=== PATIENT | female | born 1965 | race Caucasian/White ===

== ENCOUNTER 2018-06-29 12:04 | Outpatient (CLI) | payer OTHER ==
--- NOTE | 2018-06-29 14:48 | Mammography Report ---
Reason: SCREENING FOR BREAST CANCER Procedure Date: 06/29/2018 Accession Number: [id number] / [id number] Procedure: [facility]N - Screening Mammo Dig Bilat CPT Code: FULL RESULT: EXAM: Screening Mammo Dig Bilat DATE: 06/29/2018 1:24 PM CLINICAL HISTORY: Screening mammogram. No reported risk factors. TECHNIQUE: Bilateral CC and MLO views were obtained. COMPARISON: 11/18/2011. FINDINGS: The breasts demonstrate heterogeneously dense fibroglandular parenchyma bilaterally. The right posterior and lateral breast is a hyperdense 0.6 cm well-demarcated nodule, 11 cm from the nipple. This finding is new and requires additional diagnostic spot imaging and 3-D imaging as well as ultrasound for clarification. No suspicious masses, clustered microcalcifications, or regions of architectural distortion are identified in the left breast. IMPRESSION: Incomplete examination RECOMMENDATION: Additional mammographic and ultrasound evaluation of the right breast finding as detailed above. BIRADS CATEGORY 0: Incomplete examination STANDARD QUALIFYING STATEMENTS: 1. This examination was reviewed with the aid of Computer-Aided Detection (CAD). 2. A negative or benign imaging report should not delay biopsy if clinically suspicious findings are present. Consider surgical consultation if warrented. More than 5% of cancers are not identified by imaging. 3. Dense breasts may obscure an underlying neoplasm.
== END 2018-06-29 12:05 | disposition home or self-care (01) ==
LOC: DI.N 12:04
PROVIDERS: ATTEND Nurse Practitioner
DX: Z12.31 Encounter for screening mammogram for malignant neoplasm of breast (principal)
CPT/HCPCS: 77067

== ENCOUNTER 2018-07-12 08:55 | Outpatient (CLI) | payer OTHER ==
--- NOTE | 2018-07-12 11:20 | Mammography Report ---
Reason: ABNORMAL MAMMOGRAM Procedure Date: 07/12/2018 Accession Number: [id number] / [id number] Procedure: [facility]IOLA - Diag Special Views Dig RT CPT Code: FULL RESULT: EXAM: Diag Special Views Dig RT DATE: 07/12/2018 9:29 AM CLINICAL HISTORY: Diagnostic examination. The patient is recalled from screening for findings of a new right breast nodule. TECHNIQUE: (R) - Right right breast CC, spot CC, MLO, spot MLO and ML images are obtained. Focused right breast ultrasound is performed. COMPARISON: 06/29/2018 through 11/18/2011. PARENCHYMAL PATTERN: FINDINGS: The right breast nodule measuring 0.6 cm in the central right breast 11 cm from the nipple is confirmed with no associated calcifications or architectural distortion. Focused right breast ultrasound demonstrates a 10:00 wider than tall complex hypodense 0.6 cm lesion with internal septations and increased through transmission as well as vascular flow within the septation by color Doppler. Findings of a similar-appearing wider than tall septated likely cystic structure approximately 1.1 cm from the sonographic finding which corresponds to the new mammographic abnormality are correlated to 3-D and 2-D mammographic images with these are retrospectively identified confirming target location. The second sonographic finding is retrospectively mammographically stable over time and therefore typically benign. There are no suspicious calcifications, or areas of distortion. IMPRESSION: Suspicious findings. BI-RADS category 4. RECOMMENDATION: (BIOPSY) - ultrasound-guided biopsy. BI-RADS CATEGORY: (4) - Suspicious. STANDARD QUALIFYING STATEMENTS: 1. This examination was not reviewed with the aid of Computer-Aided Detection (CAD). 2. A negative or benign imaging report should not preclude biopsy if clinically suspicious findings are present. 3. Dense breasts may obscure an underlying neoplasm. 4. This examination was reviewed with the aid of 3D breast imaging (tomosynthesis).
== END 2018-07-12 08:56 | disposition home or self-care (01) ==
LOC: DI 08:55
PROVIDERS: ATTEND Nurse Practitioner
DX: N63.41 Unspecified lump in right breast, subareolar (principal)
CPT/HCPCS: 76642

== ENCOUNTER 2018-07-20 08:56 | Outpatient (CLI) | payer OTHER ==
[2018-07-20] MEDS ORDERED: BUFFERED LIDOCAINE 10 ML SYRINGE ONE (09:32)
[2018-07-20] MEDS ORDERED: BUPIVACAINE 0.5%-EPI 1:200000 PF 10 ML VIAL ONE (09:33)
[2018-07-20] MEDS ORDERED: BUPIVACAINE 0.5%-EPI 1:200000 PF 10 ML VIAL SUBQ ONE (12:12)
[2018-07-20] MEDS ORDERED: BUFFERED LIDOCAINE 10 ML SYRINGE IU ONE (12:12)
--- NOTE | 2018-07-20 15:25 | Ultrasound Report ---
Reason: RT BREAST LOCATION,RT UPPER OUTER Procedure Date: 07/20/2018 Accession Number: [id number] / [id number] Procedure: US - Biopsy Breast Core CPT Code: FULL RESULT: EXAM: ULTRASOUND-GUIDED MULTISITE RIGHT BREAST CORE NEEDLE BIOPSY; POST BIOPSY UNILATERAL RIGHT MAMMOGRAM. DATE: 07/20/2018 11:05 AM COMPARISON: 07/12/2018 CLINICAL HISTORY: There are 2 indeterminate hypoechoic lesions, both in the 10:00 position right breast. TECHNIQUE: Informed consent was obtained. Using sterile technique and local anesthetic, a core needle biopsy procedure was performed of 2 separate lesions in the usual manner using a 14 gauge Achieve core biopsy system. Site 1: Hypoechoic wider than tall mass or complicated cyst in the 10:00 position nipple plus 6 cm measuring 6 x 6 x 3 mm diameter. 3 passes with a core needle biopsy, followed by clip placement. After the first pass, the lesion nearly disappeared suggesting a complicated cyst. By procedure end, the lesion was barely perceptible. Site 2: Hypoechoic wider than tall mass or complicated cyst also in the 10:00 position nipple + 6 cm, near the other lesion, measuring 7 x 4 x 3 mm diameter. 3 passes made, and like the other lesion, by procedure end the lesion was not visible, suggesting complicated cyst. A clip was also placed in this location. FINDINGS: See above details of the multiside ultrasound-guided biopsy. Post procedure unilateral right mammogram documents appropriate clip(s) position. IMPRESSION: Technically successful ultrasound-guided core needle biopsy of 2 small separate hypoechoic lesions in the 10:00 position right breast. Based on their appearance by the end of the procedure, both are presumably complicated cysts. I participate negative pathologic results.
--- NOTE | 2018-07-23 08:45 | Mammography Report ---
Reason: POST BX CLIP FILMS Procedure Date: 07/20/2018 Accession Number: [id number] / [id number] Procedure: [facility]OLA - Diag Special Views Dig RT CPT Code: FULL RESULT: EXAM: Diag Special Views Dig RT DATE: 07/20/2018 11:37 AM CLINICAL HISTORY: TECHNIQUE: (R) - Right right CC and ML images are obtained. COMPARISON: 07/12/2018 and 06/29/2018. PARENCHYMAL PATTERN: (D) - The breast(s) demonstrate(s) heterogeneously dense fibroglandular parenchyma. FINDINGS: 2 biopsy clips in the upper medial breast are now seen. Interpreting physician was not present for the procedure. For procedural detail, please refer to the biopsy procedure report. IMPRESSION: Postprocedure biopsy clip mammographic images.
== END 2018-07-20 08:57 | disposition home or self-care (01) ==
LOC: DI 08:56
PROVIDERS: ATTEND Nurse Practitioner
DX: R92.8 Other abnormal and inconclusive findings on diagnostic imaging of breast (principal)
CPT/HCPCS: 19083; 19084